=== PATIENT | male | born 1965 | race Two or more races ===

== ENCOUNTER → 2016-09-14 | Outpatient (CLI) | payer OTHER ==
[2016-05-01 09:22] VITALS: BP 157/103
[~2016-09-14] MED LIST: ASPI-630 PO; DILT240C2 PO; HYDR-79 PO; OMEP20TA63 PO; TAMS0.4C2 PO
[2016-09-14 10:33] LABS: ALBUMIN/GLOBULIN RATIO 1.3 (1.0-1.7); CALCIUM 8.7 mg/dL (8.5-10.1); GFR 79.1; TOTAL BILIRUBIN 1.3 mg/dL (0.2-1.0); TOTAL PROTEIN 7.2 g/dL (6.4-8.2)
== END | disposition home or self-care (01) ==
LOC: LAB 09:49
PROVIDERS: ATTEND Nurse Practitioner
DX: I10 Essential (primary) hypertension (principal)
CPT/HCPCS: 36415; 80053; 80061

== ENCOUNTER → 2017-08-06 | Outpatient (CLI) | payer OTHER ==
[2016-05-01 09:22] VITALS: BP 157/103
[2017-08-06 15:45] LABS: CALCIUM 8.7 mg/dL (8.5-10.1); CREATININE 0.9 mg/dL (0.7-1.3); MAGNESIUM 2.2 mg/dL (1.8-2.4)
== END | disposition home or self-care (01) ==
LOC: LAB 15:03
PROVIDERS: ATTEND Internal Medicine Cardiovascular Disease
DX: R00.2 Palpitations (principal); I10 Essential (primary) hypertension
CPT/HCPCS: 36415; 80048; 83735; 84443

== ENCOUNTER → 2020-01-07 | Outpatient (CLI) | payer OTHER ==
[2016-05-01 09:22] VITALS: BP 157/103
[~2020-01-07] MED LIST changes: +HYDR-1179 PO; -HYDR-79 PO
--- NOTE | 2020-01-07 16:23 | RAD ---
3 view study of the left hand Clinical indications: Left hand pain. Jammed fingers one month ago. FINDINGS: No acute fracture or lytic process is evident. There is anterior subluxation of the first proximal phalanx with respect to the first metacarpal bone. There is moderate joint space narrowing and mild spurring of this joint compartment. Small punctate densities are seen within the distal lateral soft tissues of the second digit. This could represent tiny foreign bodies. There are small accessory ossicles seen dorsal to the third PIP and DIP joints. IMPRESSION: Anterior subluxation of the first proximal phalanx with respect to the first metacarpal bone. This could be due to ligament injury. 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 Tiny punctate radiopaque foreign bodies within the distal lateral soft tissues of the second digit. No acute fracture. Electronically signed by: Dominick Baldwin MD (01/07/2020 4:20 PM) [id number]
== END | disposition home or self-care (01) ==
LOC: DXRAD 11:50
PROVIDERS: ATTEND Family Medicine
DX: M19.042 Primary osteoarthritis, left hand (principal); M77.8 Other enthesopathies, not elsewhere classified
CPT/HCPCS: 73130